=== PATIENT | female | born 1940 | race Caucasian/White ===

== ENCOUNTER 2016-11-18 00:58 | Inpatient (IN) | payer OTHER, BC ==
[~2016-11-18] VITALS: Ht 165.1 cm; Wt 69.4 kg
[2016-11-18 00:58] VITALS: BP_SYST 186
--- NOTE | 2016-11-18 00:58 | NUR ---
Patient to ER bed 6 to gown for evaluation. Side rails up. Report given to NORMA JAFFE.
--- NOTE | 2016-11-18 01:00 | NUR ---
ER at bedside examining patient.
--- NOTE | 2016-11-18 01:01 | NUR ---
Pt brought in by ALS transport in stable condition. Pt c/o left upper quad abd pain 8/10 that sits right on the ribs. Pt c/o LUQ is tender to touch. Pt c/o +n/v since 2100 this evening after eating dinner. Pt stated that she has been feeling the abd pain since 0900 this morning. Pt has a hx of CVA, HTN, DM2, High Cholesterol,thyroid and pancreatic cyst. Placed pt on cardiac rehab nurse. -sob -chest pain. No acute distress noted at this time, will continue to monitor
[2016-11-18] MEDS ORDERED: AMLO5TAB4 PO (01:05)
[2016-11-18] MEDS ORDERED: FURO-149 PO (01:06)
[2016-11-18] MEDS ORDERED: COLC0.6T67 PO (01:06)
[2016-11-18] MEDS ORDERED: CAT.2 PO ×2 (01:06→01:26)
[2016-11-18] MEDS ORDERED: HYDR-3924 PO (01:09)
[2016-11-18] MEDS ORDERED: LATA2.5D6 OP (01:11)
[2016-11-18] MEDS ORDERED: INSU100V9 SUBCUT (01:11)
[2016-11-18] MEDS ORDERED: LEVO25TA7 PO (01:12)
[2016-11-18] MEDS ORDERED: BIMA2.5D5 OP (01:14)
[2016-11-18] MEDS ORDERED: NITSL SL (01:14)
[2016-11-18] MEDS ORDERED: ONDANSETRON HCL 4 MG/2 ML VIAL IVP ONE ×2 (01:15→02:30)
[2016-11-18] MEDS ORDERED: D5/0.45 NS 1,000 ML IV ONE (01:15)
[2016-11-18] MEDS ORDERED: INSU200I SQ (01:18)
[2016-11-18] MEDS ORDERED: PANT20TA2 PO (01:18)
[2016-11-18] MEDS ORDERED: PERM60CR18 TP ×2 (01:22)
[2016-11-18] MEDS ORDERED: TRIA80OI TP (01:23)
[2016-11-18] MEDS ORDERED: POTA-118 PO (01:23)
[2016-11-18] MEDS ORDERED: FEBU40TA PO (01:25)
[2016-11-18] MEDS ORDERED: VALS160T2 PO (01:26)
[2016-11-18] MEDS ORDERED: CLOP75TA2 PO (01:27)
[2016-11-18] MEDS ORDERED: LOVA10TA55 PO (01:27)
[2016-11-18] MEDS ORDERED: MORPHINE 4 MG/ML INJ. SYRINGE IVP ONE (01:30)
[2016-11-18 01:34] LABS: BASOPHILS % (AUTO) 0.2 % (0.0-2.0); EOSINOPHILS % (AUTO) 0.4 % (0.0-4.0); HEMATOCRIT 33.1 % (36-48); HEMOGLOBIN 11.6 g/dL (12.0-16.0); LYMPHOCYTES # (AUTO) 0.6 K/uL (1.0-5.5); LYMPHOCYTES % (AUTO) 6.5 % (20.5-51.5); MEAN CORPUSCULAR HEMOGLOBIN 29 pg (27-31); MEAN CORPUSCULAR HGB CONC 35 % (32-36); MEAN CORPUSCULAR VOLUME 83 fL (79.0-98.0); MONOCYTES # (AUTO) 0.4 K/uL (0.0-1.0); MONOCYTES % (AUTO) 4.2 % (1.7-9.3); NEUTROPHILS % (AUTO) 88.7 % (40.0-70.0); PLATELET COUNT (AUTO) 123 K/uL (130-430); RED BLOOD CELL COUNT(AUTO) 3.97 MIL/uL (4.2-6.2)
[2016-11-18 01:42] LABS: ANION GAP 13 (5-15); CALCIUM 9.3 mg/dL (8.4-11.0); CHLORIDE 103 mmol/L (98-107); CREATININE 1.95 mg/dL (0.55-1.30); GLUCOSE 165 mg/dL (70-99); POTASSIUM 3.8 mmol/L (3.5-5.1); SODIUM SERUM 142 mmol/L (136-145); UREA NITROGEN, BLOOD 51 mg/dL (8-21)
[2016-11-18 01:50] LABS: ALANINE AMINOTRANSFERASE 192 U/L (12-78); ALBUMIN 4.3 g/dL (3.4-4.8); ASPARTATE AMINOTRANSFERASE 32 U/L (10-37); CREATINE KINASE, TOTAL 94 U/L (26-192); TOTAL BILIRUBIN 0.5 mg/dL (0.0-1.0); TOTAL PROTEIN, SERUM 8.3 g/dL (6.4-8.3)
[2016-11-18 02:11] LABS: BILIRUBIN,URINE NEGATIVE (NEGATIVE); BLOOD, URINE 1+ (NEGATIVE); CLARITY/URINE CLEAR (CLEAR); COLOR,URINE YELLOW (YELLOW); GLUCOSE,URINE NEGATIVE (NEGATIVE); KETONES,URINE NEGATIVE (NEGATIVE); LEUKOCYTE ESTERASE ,URINE NEGATIVE (NEGATIVE); NITRITE, URINE NEGATIVE (NEGATIVE); PH,URINE 5.5 (5.0-8.0); PROTEIN URINE 2+ (NEGATIVE); UROBILINOGEN,URINE 0.2 (0.2-1.0)
--- NOTE | 2016-11-18 02:15 | NUR ---
Removed pt's diaper and cleaned her up prior to using a bed dickson. Pt tolerated well
[2016-11-18 02:16] LABS: BACTERIA,URINE FEW /HPF (None Seen); MUCUS,URINE None Seen /LPF (None Seen); RBC,URINE 0-3 /HPF (0-3); WBC,URINE 0-3 /HPF (0-3)
--- NOTE | 2016-11-18 03:10 | NUR ---
ADMISSION NOTE Received patient from ER via gurney. Patient admitted with diagnosis of Acute Gastritis. Patient is awake, alert, oriented X 4. Patient oriented to hospital room, call light, toileting, pain management and safety-teach back done. Patient informed that Frank will be her nurse and that their room number is 111a. Personal belongings checked and Belongings List documented. Call light within reach.
--- NOTE | 2016-11-18 03:10 | NUR ---
Patient will be admitted to care of DR. DOWLING. Admitted to MED SURG unit. Will go to room 111-A. Belongings list completed. Summary report printed. Report will be given at bedside to NORMA Finn.
--- NOTE | 2016-11-18 03:10 | NUR ---
initial nursing notes: Patient awake in bed. Patient has IV fluid infusing on the left forearm IV access. Patient denies of having pain.
[2016-11-18] MEDS: D5NS 1,000 ML IV SCH ×2 (03:52→17:43)
[2016-11-18 04:00] VITALS: BP_SYST 175
[2016-11-18] MEDS ORDERED: METOPROLOL TARTRATE 50 MG TABLET PO ONE (04:00)
[2016-11-18] MEDS ORDERED: MORPHINE 2 MG/ML INJ. SYRINGE IVP PRN (04:00)
--- NOTE | 2016-11-18 05:10 | NUR ---
nursing rounds: Patient received pain medication for her abdominal pain. Patient stated that the pain medication was effective.
--- NOTE | 2016-11-18 07:36 | NUR ---
closing nursing notes: Patient is awake, alert and oriented X 4. Patient is in no acute respiratory distress. No episodes of fall and no injuries throughout the overnight associate. Provided nursing report to incoming morning shift nurse, ROSELYN Ruiz, at patient's bedside.
--- NOTE | 2016-11-18 07:40 | NUR ---
NRSG: RESTING ON BED ,AWAKE,ALERT AND ORIENTED X 4. RESPIRATION EVEN AND UNLABORED. LUNGS CLEAR BILATERAL ON AUSCULTATION. ABDOMEN SOFT WITH BOWEL SOUND X 4 QUADRANTS. NO C/O OF PAIN. C/O I'M HAVING NAUSEA AND VOMITING BUT IM OKAY AT THIS POINT .HAD IVF AND THE SITE ON THE LEFT FOREARM INTACT AND INPLACED. NO S/S OF INFILTRATION. HAD 1+ EDEMA ON BOTH LEGS. CALL LIGHT WITHIN REACH. INSTRUCTED TO CALL IF NEEDS HELP AND VERBALIZED UNDERSTANDING.
[2016-11-18 08:00] VITALS: BP_SYST 174
--- NOTE | 2016-11-18 08:00 | NUR ---
: GAVE A CALL TO DR. DOWLING REGARDING HAVING EMESIS. WILL WAIT FOR THE RETURN CALL.
[2016-11-18] MEDS ORDERED: LORazepam 2 MG/ML VIAL IVP PRN (08:30)
[2016-11-18] MEDS ORDERED: DEXTROSE 50% JECT 50 ML DISP.SYRIN IVP PRN (08:30)
[2016-11-18] MEDS ORDERED: DOCUSATE SODIUM 100 MG CAPSULE PO PRN (08:30)
[2016-11-18] MEDS ORDERED: MAGNESIUM SULFATE 50 ML IV PRN (08:30)
[2016-11-18] MEDS ORDERED: ZOLPIDEM TARTRATE 5 MG TABLET PO PRN (08:30)
[2016-11-18] MEDS ORDERED: POTASSIUM CHLORIDE 10 MEQ TAB.PRT.SR PO PRN (08:30)
--- NOTE | 2016-11-18 08:30 | NUR ---
ROUNDS: SEEN AND EXAMINED BY DR. DOWLING AND NOTIFIED REGARDING EMESIS ,DVT PROPHYLAXIS . HAD NEW ORDERS.
--- NOTE | 2016-11-18 08:35 | NUR ---
NPO: PLACED NPO ORDERED.
[2016-11-18 08:41] LABS: AMYLASE 143 U/L (0-100); LIPASE 167 U/L (73-393)
[2016-11-18] MEDS ORDERED: DIATR MEGLU/DIATRIZ SOD 30 ML SOLUTION PO ONE (08:58)
[2016-11-18] MEDS ORDERED: BIMATOPROST 0.01%, 2.5 ML EYE DROPS OP SCH (09:00)
[2016-11-18] MEDS ORDERED: LEVOTHYROXINE SODIUM 0.025 MG TABLET PO ONE (09:20)
[2016-11-18] MEDS ORDERED: LEVOTHYROXINE SODIUM 0.025 MG TABLET PO SCH (09:20)
--- NOTE | 2016-11-18 09:38 | NUR ---
Nutrition Update Jovanny Scale 16 noted. Pt admitted for gastritis. Diet: clear liquid BMI: 25.5 kg/m2 RD to follow per nutrition care standards.
--- NOTE | 2016-11-18 11:20 | NUR ---
CT; WENT TO CT , PRIOR ELECTROLYTIC DE SCALER WAS NOTIFIED THAT PATIENT UNABLE TO FINISH OR TOLERATES PO CONTRAST .WENT TO CT BY WHEELCHAIR, AWAKE,ALERT,ACCOMPANIED BY LUIS ENRIQUE ELECTROLYTIC DE SCALER.
--- NOTE | 2016-11-18 11:45 | NUR ---
ACTIVITY: BACK FROM CT. KEPT COMFORTABLE ON BED. NO C/O OF NAUSEA. INSTRUCTED TO CALL IF FEELING NAUSEATED AND UNDERSTOOD.
[2016-11-18] MEDS: cloNIDine HCL 0.2 MG TABLET PO SCH ×2 (11:56→21:37)
[2016-11-18] MEDS: COLCHICINE 0.6 MG TABLET PO SCH (11:56)
[2016-11-18] MEDS: FUROSEMIDE 40 MG TABLET PO SCH (11:57)
[2016-11-18] MEDS: VALSARTAN 160 MG TABLET (DIOVAN) PO SCH (11:57)
[2016-11-18] MEDS: HEPARIN SODIUM,PORCINE 5000 UNITS/ML VIAL SUBCUT SCH ×2 (12:00→21:41)
[2016-11-18 12:08] VITALS: BP_SYST 166
[2016-11-18] MEDS: LATANOPROST 2.5 ML DROPS (XALATAN) OP SCH (12:50)
[2016-11-18] MEDS: INSULIN ASPART 100 UNITS/ML, 10 ML VIAL (NovoLOG) SUBCUT PRN ×3 (12:52→21:44)
[2016-11-18] MEDS: ONDANSETRON HCL 4 MG/2 ML VIAL IVP PRN (13:04)
--- NOTE | 2016-11-18 13:04 | NUR ---
NAUSEA: C/O OF NAUSEATED. FRANCOIS GREEN GAVE ZOFRAN ORDERED.
--- NOTE | 2016-11-18 14:25 | NUR ---
ACTIVITY: RESTING ON BED COMFORTABLY , STILL WITH IVF ON PROGRESS . NO NAUSEA AT THIS TIME.
[2016-11-18 16:18] VITALS: BP_SYST 159
--- NOTE | 2016-11-18 16:30 | NUR ---
ACTIVITY: RESTING AND EYES CLOSED , NO PAIN ,NO NAUSEA. WILL CONTINUE TO MONITOR. CALL LIGHT WITHIN REACH.
--- NOTE | 2016-11-18 18:57 | NUR ---
CLOSING: RESTING ON BED ,NO NAUSEA/VOMITING. IV SITE INTACT AND INPLACED, NO S/S OF INFILTRATION . CALL LIGHT WITHIN REACH.WILL ENDORSE TO NIGHT NURSE.AWAKE ,ALERT AND ORIENTED.
--- NOTE | 2016-11-18 19:20 | NUR ---
initial nursing notes: Patient awake in bed. Patient watching television. Patient denies of having pain.
[2016-11-18 20:00] VITALS: BP_SYST 161
--- NOTE | 2016-11-18 21:20 | NUR ---
nursing rounds: Patient is ambulatory to the bathroom with assist and cane. No fall and no injury noted.
--- NOTE | 2016-11-18 23:20 | NUR ---
nursing rounds: Patient asleep in bed. Patient has no shortness of breath.
[2016-11-19 00:38] VITALS: BP_SYST 142
--- NOTE | 2016-11-19 01:20 | NUR ---
nursing rounds: Patient sleeping in bed. Patient's breathing pattern is regular and unlabored.
--- NOTE | 2016-11-19 03:20 | NUR ---
nursing rounds: Patient asleep in bed. Patient has no respiratory distress.
--- NOTE | 2016-11-19 04:30 | NUR ---
RN ROUNDS PATIENT ASSISTED TO BEDSIDE COMMODE. FALL PRECAUTIONS IN PLACE, BED ALARM ON, CALL LIGHT WITHIN REACH
--- NOTE | 2016-11-19 05:20 | NUR ---
nursing rounds: Patient calmly resting in bed. Call light within patient's reach.
[2016-11-19] MEDS: INSULIN ASPART 100 UNITS/ML, 10 ML VIAL (NovoLOG) SUBCUT PRN ×3 (06:09→21:28)
[2016-11-19 06:51] LABS: BASOPHILS % (AUTO) 0.5 % (0.0-2.0); EOSINOPHILS # (AUTO) 0.1 K/uL (0.0-0.4); EOSINOPHILS % (AUTO) 2.4 % (0.0-4.0); HEMATOCRIT 28.7 % (36-48); HEMOGLOBIN 9.9 g/dL (12.0-16.0); MEAN CORPUSCULAR HEMOGLOBIN 29 pg (27-31); MEAN CORPUSCULAR HGB CONC 35 % (32-36); MEAN CORPUSCULAR VOLUME 85 fL (79.0-98.0); MONOCYTES # (AUTO) 0.4 K/uL (0.0-1.0); MONOCYTES % (AUTO) 7.5 % (1.7-9.3); NEUTROPHILS # (AUTO) 3.6 K/uL (1.8-7.7); NEUTROPHILS % (AUTO) 70.6 % (40.0-70.0); PLATELET COUNT (AUTO) 104 K/uL (130-430); RED BLOOD CELL COUNT(AUTO) 3.39 MIL/uL (4.2-6.2); RED CELL DISTRIBUTION WIDTH 13.3 % (9.0-15.0); WHITE BLOOD COUNT (AUTO) 5.1 K/uL (4.8-10.8)
[2016-11-19 07:06] LABS: ANION GAP 6 (5-15); CALCIUM 8.4 mg/dL (8.4-11.0); CHLORIDE 106 mmol/L (98-107); CREATININE 1.75 mg/dL (0.55-1.30); GLUCOSE 193 mg/dL (70-99); POTASSIUM 3.6 mmol/L (3.5-5.1); SODIUM SERUM 137 mmol/L (136-145); UREA NITROGEN, BLOOD 33 mg/dL (8-21)
--- NOTE | 2016-11-19 07:45 | NUR ---
closing nursing notes: Patient is awake, alert and oriented X 4. Patient is in no acute respiratory distress. No episodes of fall and no injuries throughout the caustic cresylate shift superintendent. Provided nursing report to incoming morning shift nurse, NORMA Webber, at patient's bedside.
[2016-11-19 08:00] VITALS: BP_SYST 198
[2016-11-19] MEDS: COLCHICINE 0.6 MG TABLET PO SCH (08:13)
[2016-11-19] MEDS: cloNIDine HCL 0.2 MG TABLET PO SCH ×2 (08:14→21:13)
[2016-11-19] MEDS: VALSARTAN 160 MG TABLET (DIOVAN) PO SCH (08:14)
[2016-11-19] MEDS: LEVOTHYROXINE SODIUM 0.025 MG TABLET PO SCH (08:14)
[2016-11-19] MEDS: FUROSEMIDE 40 MG TABLET PO SCH (08:15)
[2016-11-19] MEDS: HEPARIN SODIUM,PORCINE 5000 UNITS/ML VIAL SUBCUT SCH ×2 (08:16→21:14)
--- NOTE | 2016-11-19 08:28 | NUR ---
opening Note Assisted patient to the restroom and back into bed. Patient is in stable condition. No complaints of pain at the moment. Call light is within reach. Bed is in low position. Bed alarm is on. IV is on the LFA 22g running D5NS@70ml/hr. Will continue to monitor.
--- NOTE | 2016-11-19 10:32 | NUR ---
Rounds Patient is resting in bed. No sings of distress noted.
[2016-11-19] MEDS: LEVOFLOXACIN 500 MG/D5W 100 ML IV SCH (11:03)
[2016-11-19] MEDS: D5NS 1,000 ML IV SCH ×2 (11:07→23:43)
--- NOTE | 2016-11-19 11:20 | NUR ---
Blood Sugar Current accu check is 425. Covered with [address] Cortez called.
--- NOTE | 2016-11-19 11:45 | NUR ---
Spoke with Spoke with Dr. Cortez. stated to recheck blood sugar in 30mintues. If blood sugar is over 300 MD stated to give 10 units of Novolog.
--- NOTE | 2016-11-19 11:46 | NUR ---
CALLED ATTENDING MD DR DOWLING, RE: HIGH BS ([phone])
--- NOTE | 2016-11-19 11:50 | NUR ---
Blood Sugar Current blood sugar is 437. Will give 10 units of Novolog per MD order. Will recheck blood sugar.
[2016-11-19 12:00] VITALS: BP_SYST 158
[2016-11-19] MEDS ORDERED: COMMUNICATION ORDER XX ONE (12:15)
[2016-11-19] MEDS ORDERED: INSULIN ASPART 100 UNITS/ML, 10 ML VIAL SUBCUT ONE (12:15)
[2016-11-19] MEDS: LATANOPROST 2.5 ML DROPS (XALATAN) OP SCH (12:20)
--- NOTE | 2016-11-19 13:05 | NUR ---
Blood sugar Current blood sugar is 259.
--- NOTE | 2016-11-19 14:44 | NUR ---
Rounds Patient is resting in bed. No signs of distress noted.
[2016-11-19] MEDS: ACETAMINOPHEN 325 MG TABLET PO PRN (16:04)
--- NOTE | 2016-11-19 16:10 | NUR ---
Rounds Patient is resting in bed. Call light is within reach.
--- NOTE | 2016-11-19 18:20 | NUR ---
Rounds Patient is resting in bed. Tolerated diet well. IV is on the LFA running D5NS@80ml/hr. Call light is within reach. Bed alarm is on. Will give report to the oncoming nurse.
--- NOTE | 2016-11-19 19:15 | NUR ---
OPENING NOTES PATIENT IS RESTING COMFORTABLY WATCHING TELEVISION, WITH NO S/S OF ACUTE DISTRESS NOTED. ALERT AND ORIENTED X4. PATIENT DENIES PAIN. PT. TOLERATING DINNER. PATIENT HAD A BM IN BEDSIDE COMMODE. SKIN DRY, WARM TO THE TOUCH. BED IN LOWEST POSITION, CALL LIGHT WITHIN REACH.
[2016-11-19 20:10] VITALS: BP_SYST 161
[2016-11-19] MEDS: ONDANSETRON HCL 4 MG/2 ML VIAL IVP PRN (21:13)
--- NOTE | 2016-11-19 21:30 | NUR ---
BLOOD SUGAR BLOOD SUGAR WAS 313, SLIDING SCALE COVERAGE
--- NOTE | 2016-11-19 23:30 | NUR ---
ASSISTED PT. TO BEDSIDE COMMODE. PATIENT HAD A BM AND VOID.
[2016-11-20] VITALS (8 sets, daily range): BP systolic 128–197
--- NOTE | 2016-11-20 01:30 | NUR ---
RN ROUNDS PATIENT IS SLEEPING COMFORTABLY WITH VISIBLE RISE AND FALL OF CHEST NOTED.IV INFUSING. FALL PRECAUTIONS IN PLACE, BED ALARM ON, CALL LIGHT WITHIN REACH
--- NOTE | 2016-11-20 03:30 | NUR ---
RN ROUNDS PATIENT IS STABLE, NO CHANGE IN CONDITION.
--- NOTE | 2016-11-20 05:30 | NUR ---
RN ROUNDS PATIENT IS STABLE, NO CHANGE IN CONDITION.
[2016-11-20] MEDS: INSULIN ASPART 100 UNITS/ML, 10 ML VIAL (NovoLOG) SUBCUT PRN ×3 (06:31→21:08)
--- NOTE | 2016-11-20 06:54 | NUR ---
CLOSING NOTES PATIENT IS RESTING COMFORTABLY WATCHING TELEVISION, WITH NO S/S OF ACUTE DISTRESS NOTED. PATIENT DENIES. PATIENT SKIN DRY, WARM TO THE TOUCH. BLOOD SUGAR WAS 181 AND REQUIRED 2 UNITS OF SLIDING SCALE. BED IN LOWEST POSITION, CALL LIGHT WITHIN REACH. WILL ENDORSE CARE TO DAYSHIFT NURSE.
[2016-11-20 06:59] LABS: BASOPHILS % (AUTO) 0.3 % (0.0-2.0); EOSINOPHILS # (AUTO) 0.1 K/uL (0.0-0.4); EOSINOPHILS % (AUTO) 1.8 % (0.0-4.0); HEMATOCRIT 28.2 % (36-48); HEMOGLOBIN 9.7 g/dL (12.0-16.0); LYMPHOCYTES # (AUTO) 0.8 K/uL (1.0-5.5); LYMPHOCYTES % (AUTO) 15.4 % (20.5-51.5); MEAN CORPUSCULAR HEMOGLOBIN 29 pg (27-31); MEAN CORPUSCULAR HGB CONC 34 % (32-36); MEAN CORPUSCULAR VOLUME 85 fL (79.0-98.0); MONOCYTES # (AUTO) 0.5 K/uL (0.0-1.0); MONOCYTES % (AUTO) 9.8 % (1.7-9.3); NEUTROPHILS # (AUTO) 3.7 K/uL (1.8-7.7); NEUTROPHILS % (AUTO) 72.7 % (40.0-70.0); PLATELET COUNT (AUTO) 90 K/uL (130-430); RED BLOOD CELL COUNT(AUTO) 3.34 MIL/uL (4.2-6.2); RED CELL DISTRIBUTION WIDTH 12.8 % (9.0-15.0); WHITE BLOOD COUNT (AUTO) 5.1 K/uL (4.8-10.8)
[2016-11-20 07:19] LABS: ANION GAP 7 (5-15); CALCIUM 8.3 mg/dL (8.4-11.0); CHLORIDE 107 mmol/L (98-107); CREATININE 1.59 mg/dL (0.55-1.30); GLUCOSE 199 mg/dL (70-99); POTASSIUM 3.5 mmol/L (3.5-5.1); SODIUM SERUM 139 mmol/L (136-145); UREA NITROGEN, BLOOD 24 mg/dL (8-21)
--- NOTE | 2016-11-20 08:11 | NUR ---
Opening Note Report received from Jaylyn GREEN. Patient is awake and currently eating breakfast. No signs of distress noted. Call light is within reach. Bed is in low position. IV is on the LFA 20g running D5NS@70ml/hr. Will continue to monitor.
[2016-11-20] MEDS: COLCHICINE 0.6 MG TABLET PO SCH (08:44)
[2016-11-20] MEDS: LEVOTHYROXINE SODIUM 0.025 MG TABLET PO SCH (08:44)
[2016-11-20] MEDS: VALSARTAN 160 MG TABLET (DIOVAN) PO SCH (08:45)
[2016-11-20] MEDS: FUROSEMIDE 40 MG TABLET PO SCH (08:45)
[2016-11-20] MEDS: cloNIDine HCL 0.2 MG TABLET PO SCH ×2 (08:45→21:04)
[2016-11-20] MEDS: HEPARIN SODIUM,PORCINE 5000 UNITS/ML VIAL SUBCUT SCH ×2 (08:47→21:09)
[2016-11-20] MEDS: LATANOPROST 2.5 ML DROPS (XALATAN) OP SCH (08:56)
[2016-11-20] MEDS: LEVOFLOXACIN 500 MG/D5W 100 ML IV SCH (08:56)
[2016-11-20] MEDS ORDERED: LEVO500T20 PO (09:06)
--- NOTE | 2016-11-20 10:20 | NUR ---
MD Rounds Dr. Cortez made rounds and spoke with the patient. stated that patient may be discharged if the blood pressure is under control. Will follow up.
--- NOTE | 2016-11-20 11:00 | NUR ---
Spoke with MD Spoke with Dr. Cortez. Current blood pressure is 179/64. Orders for Clonidine PO was received.
[2016-11-20] MEDS ORDERED: cloNIDine HCL 0.1 MG TABLET PO ONE (11:15)
--- NOTE | 2016-11-20 13:00 | NUR ---
Spoke with MD Spoke with Dr. Cortez. BP is still elevated. A second order for Clonidine PO was received will reassess.
[2016-11-20] MEDS ORDERED: cloNIDine HCL 0.2 MG TABLET PO ONE (14:15)
--- NOTE | 2016-11-20 15:30 | NUR ---
Rounds Patient is resting in bed. BP is still elevated. Will call .
[2016-11-20] MEDS: ACETAMINOPHEN 325 MG TABLET PO PRN ×2 (15:52→23:13)
[2016-11-20] MEDS ORDERED: LISINOPRIL 20 MG TABLET PO ONE (16:45)
--- NOTE | 2016-11-20 16:50 | NUR ---
Spoke with MD Spoke with Dr. Cortez. Orders for Lisinopril 20mg PO and stat troponin were received. Will administer med and reassess
[2016-11-20] MEDS: D5NS 1,000 ML IV SCH ×2 (17:09→18:43)
--- NOTE | 2016-11-20 19:01 | NUR ---
Spoke with MD Spoke with Dr. Cortez. Current BP is 174/64. Troponin os 0.017. MD stated that it is unsafe to dc patient at the moment. also stated that if patient wants to go home to have her sign an AMA form.
--- NOTE | 2016-11-20 19:10 | NUR ---
Closing Note Report was given to Casey GREEN. Patient was advised that is is unsafe to discharge her home with and elevated BP. Patient stated that she will speak with her . Other than the elevated BP patient is in stable condition.
--- NOTE | 2016-11-20 20:30 | NUR ---
Initial note A/O x 3, no SOB, no chest pain, c/o mild pain when pressing her legs. Treace edema BLE with +2 radial and pedal pulses. Clear lung sounds and active bowel sounds. IV at L FA, IVF ongoing. Talking on the phone with her son. Call light within reach, bed at lowest position, BSC at bedside, will continue to monitor patient.
--- NOTE | 2016-11-20 22:05 | NUR ---
Rounds Resting in bed, no SOB no chest pain, denied pain. No s/s of hyper or hypoglycemia. Denied headache or blurred vision. Patient stated she planned to leave in AM after Levaquin completed and she will sign AMA, will inform charge nurse. Call light within reach, bed at lowest position, IVF ongoing. Will continue to monitor patient.
--- NOTE | 2016-11-21 00:11 | NUR ---
Rounds Sleeping in bed, no SOB no chest pain, no grimacing. No s/s of hyper or hypoglycemia. Call light within reach, bed at lowest position, IVF ongoing. Will continue to monitor patient.
[2016-11-21 00:30] VITALS: BP_SYST 167
--- NOTE | 2016-11-21 02:26 | NUR ---
Rounds Sleeping in bed, no SOB no chest pain, no grimacing. No s/s of hyper or hypoglycemia. Call light within reach, bed at lowest position. Will continue to monitor patient.
[2016-11-21] MEDS: D5NS 1,000 ML IV SCH (04:16)
--- NOTE | 2016-11-21 04:17 | NUR ---
Rounds Awake in bed, no SOB no chest pain, c/o stomach pain, but refused to take pain medication because she wanted to have bed bath around 5:30 am, and she's afraid she's sleeping. No s/s of hyper or hypoglycemia. Call light within reach, bed at lowest position. Will continue to monitor patient.
[2016-11-21] MEDS: ONDANSETRON HCL 4 MG/2 ML VIAL IVP PRN (04:35)
[2016-11-21] MEDS: MORPHINE 2 MG/ML INJ. SYRINGE IVP PRN ×2 (04:43→09:37)
--- NOTE | 2016-11-21 04:45 | NUR ---
C/o nauseated and stomach pain, Zofran IVP and Morphine IVP given.
[2016-11-21 04:59] VITALS: BP_SYST 170
[2016-11-21] MEDS: ACETAMINOPHEN 325 MG TABLET PO PRN (06:15)
[2016-11-21] MEDS: INSULIN ASPART 100 UNITS/ML, 10 ML VIAL (NovoLOG) SUBCUT PRN (06:23)
--- NOTE | 2016-11-21 06:26 | NUR ---
Rounds C/o SOB earlier, clear lung sounds, O2 sat 100% on RA. Instructed patient to practice deep breathing. Patient stated now, no more SOB. Temp 100.1 F, Tylenol 325 mg PO given. Will reassess patient later. BS 276, 6 units of Novolog given, no s/s of hyper or hypoglycemia.
[2016-11-21 06:50] LABS: BASOPHILS % (AUTO) 0.2 % (0.0-2.0); EOSINOPHILS % (AUTO) 0.3 % (0.0-4.0); HEMATOCRIT 32.3 % (36-48); HEMOGLOBIN 11.1 g/dL (12.0-16.0); LYMPHOCYTES # (AUTO) 1.2 K/uL (1.0-5.5); LYMPHOCYTES % (AUTO) 12.3 % (20.5-51.5); MEAN CORPUSCULAR HEMOGLOBIN 29 pg (27-31); MEAN CORPUSCULAR HGB CONC 34 % (32-36); MEAN CORPUSCULAR VOLUME 85 fL (79.0-98.0); MONOCYTES # (AUTO) 0.8 K/uL (0.0-1.0); MONOCYTES % (AUTO) 8.3 % (1.7-9.3); NEUTROPHILS # (AUTO) 8.1 K/uL (1.8-7.7); NEUTROPHILS % (AUTO) 78.9 % (40.0-70.0); PLATELET COUNT (AUTO) 113 K/uL (130-430); WHITE BLOOD COUNT (AUTO) 10.1 K/uL (4.8-10.8)
--- NOTE | 2016-11-21 06:52 | NUR ---
Temp 100.2, ice pack provided for bilateral underarm.
[2016-11-21 07:04] LABS: ANION GAP 8 (5-15); CALCIUM 8.7 mg/dL (8.4-11.0); CHLORIDE 101 mmol/L (98-107); CREATININE 1.84 mg/dL (0.55-1.30); GLUCOSE 263 mg/dL (70-99); POTASSIUM 3.3 mmol/L (3.5-5.1); SODIUM SERUM 134 mmol/L (136-145); UREA NITROGEN, BLOOD 26 mg/dL (8-21)
--- NOTE | 2016-11-21 07:12 | NUR ---
OPENING NOTE PATIENT IV NOTED TO HAVE RUN DRY. IV STOPPED AND REMOVED. WILL REPLACE WITH WHOLE NEW TUBING HOWEVER PATIENT STATES DUE TO THE FACT THAT HER SBP IS SO HIGH AND SHE IS HAVING LOW GRADE FEVERS SHE WANTS TO LEAVE AMA. ADVISED PATIENT THAT SHE MAY BE CHARGED FOR STAY, THAT INS MAY NOT PAY IF PATIENT LEAVES WITHOUT A DR ORDER AND PATIENT STATED THAT THIS WAS FINE TO HER. PER PATIENT SHE STATES SHE WANTS TO GO TO [facility] WHERE THEY KNOW HER AND GET HER CORRECT BLOOD PRESSURE MEDICATIONS AND PROPER ANTIBIOTICS TO GET RID OF HER FEVER.
--- NOTE | 2016-11-21 07:20 | NUR ---
Closing note A/O x 3, no SOB, no chest pain, denied pain at this time. Reassessed temp 99.8. Patient stated she will go home after IV antibiotic done. Call light within reach, bed at lowest position, report given to incoming nurse for AMA after IV med, SOB episode x 1, low grade fever.
[2016-11-21 09:00] VITALS: BP_SYST 156
[2016-11-21] MEDS ORDERED: LISINOPRIL 20 MG TABLET PO SCH (09:00)
--- NOTE | 2016-11-21 09:02 | NUR ---
patient called rn phone asking for am meds.
[2016-11-21] MEDS: cloNIDine HCL 0.2 MG TABLET PO SCH (09:32)
[2016-11-21] MEDS: FUROSEMIDE 40 MG TABLET PO SCH (09:32)
[2016-11-21] MEDS: VALSARTAN 160 MG TABLET (DIOVAN) PO SCH (09:32)
[2016-11-21] MEDS: LEVOTHYROXINE SODIUM 0.025 MG TABLET PO SCH (09:33)
[2016-11-21] MEDS: COLCHICINE 0.6 MG TABLET PO SCH (09:33)
[2016-11-21] MEDS: HEPARIN SODIUM,PORCINE 5000 UNITS/ML VIAL SUBCUT SCH (09:36)
[2016-11-21] MEDS ORDERED: METR500T PO ×2 (09:39→09:41)
[2016-11-21] MEDS: LEVOFLOXACIN 500 MG/D5W 100 ML IV SCH (09:40)
[2016-11-21] MEDS: LATANOPROST 2.5 ML DROPS (XALATAN) OP SCH (09:40)
[2016-11-21] MEDS ORDERED: HYDROCHLOROTHIAZIDE 25 MG TABLET (HCTZ) PO ONE (10:00)
--- NOTE | 2016-11-21 10:00 | NUR ---
PATIENT MEDICATED PER ALL ORDERS. ORDERS TO DC HOME WITH PRESCRIPTIONS BY DR DOWLING.
[2016-11-21 10:25] VITALS: BP_SYST 90
--- NOTE | 2016-11-21 11:00 | NUR ---
TWO WRITTEN PRESCRIPTIONS SENT HOME WITH PATIENT. ALL DC PAPERWORK EXPLAINED AND SIGNED. PATIENT VERBALIZED UNDERSTANDING OF ALL DC INSTRUCTIONS AND MEDICATIONS ACTIONS SIDE EFFECTS AND USES. ALL BELONGINGS AND PERSONAL ITEMS ACCOUNTED FOR AND SENT HOME WITH PATIENT. AT BEDSIDE TO DRIVE PT HOME. PATIENT TAKEN TO PRIVATE AUTO VIA WHEELCHAIR.
[2016-11-22] MEDS ORDERED: HYDROCHLOROTHIAZIDE 25 MG TABLET (HCTZ) PO SCH (09:00)
--- NOTE | 2016-11-24 16:16 | NUR ---
Discharge Follow Up Phone Call NUCLEAR MONITORING TECHNICIAN phoned patient, . Patient stated she was not feeling well. Her blood pressure has not been well controlled. She has been to her PCP twice. The PCP thinks that once the antibiotic is completed, the blood pressure problem will resolve. Patient knows she can come to the ED if needed. Patient did fill her prescriptions and is taking them as directed. Patient had no other questions or concerns.
== END 2016-11-21 11:15 | disposition home or self-care (01) | DRG 682 ==
LOC: SED 00:58 → SMU 02:40
PROVIDERS: ADMIT General Practice; ATTEND General Practice
DX: N17.0 Acute kidney failure with tubular necrosis (principal); J18.9 Pneumonia, unspecified organism; K52.9 Noninfective gastroenteritis and colitis, unspecified; H40.9 Unspecified glaucoma; E11.9 Type 2 diabetes mellitus without complications; I50.9 Heart failure, unspecified; K21.9 Gastro-esophageal reflux disease without esophagitis; M10.9 Gout, unspecified; E78.5 Hyperlipidemia, unspecified; E86.0 Dehydration; D69.6 Thrombocytopenia, unspecified; I11.0 Hypertensive heart disease with heart failure; E03.9 Hypothyroidism, unspecified; Z90.710 Acquired absence of both cervix and uterus; Z90.49 Acquired absence of other specified parts of digestive tract; Z88.1 Allergy status to other antibiotic agents; Z88.0 Allergy status to penicillin; Z79.899 Other long term (current) drug therapy
CPT/HCPCS: 36415; 71010; 71250-TC; 74150-TC; 80048; 80053; 81000-TC; 82150-TC; 82550-TC; 82962; 83690-TC; 83735-TC; 83880; 84484; 85025; 85379; 93005; 96361; 96374; 96375; 96376; 99285; J1644; J1815; J1956; J2270; J2405; J3475; J7042; Q9964